=== PATIENT | male | born 1980 | race Asian ===

== ENCOUNTER 2022-03-25 23:02 | Emergency (ER) | payer BC, OTHER ==
[~2022-03-25] VITALS: Ht 167.6 cm; Wt 104.3 kg
--- NOTE | 2022-03-25 23:49 | NUR ---
POC ACCUCHECK BS 347
[2022-03-25] MEDS ORDERED: DICYCLOMINE HCL INJ 20 MG/2 ML AMPUL IM ONE (23:57)
[2022-03-25] MEDS ORDERED: ONDANSETRON HCL/PF 4 MG/2 ML VIAL ONE (23:57)
[2022-03-26] MEDS ORDERED: DICYCLOMINE HCL INJ 20 MG/2 ML AMPUL IM ONE
[2022-03-26] MEDS ORDERED: IV NS 0.9% 1,000 ML BAG IV ONE
[2022-03-26] MEDS ORDERED: ONDANSETRON HCL/PF 4 MG/2 ML VIAL IVP ONE
--- NOTE | 2022-03-26 00:05 | NUR ---
RAC #18G S/L BLOOD COLLECTED AND SENT TO LAB
--- NOTE | 2022-03-26 00:06 | NUR ---
COVID ANTIGEN SWAB COLLECTED AND SENT TO LAB. PT NOT ABLE TO URINATE AT THIS TIMEL; AWAITING URINE SAMPLE
--- NOTE | 2022-03-26 00:18 | NUR ---
URINE COLLECTED AND SENT TO LAB
[2022-03-26 00:31] LABS: BASOPHILS % (AUTO) 0.1 % (0.0-2.0); EOSINOPHILS % (AUTO) 0.7 % (0.0-6.0); HEMATOCRIT 53 % (39-51); HEMOGLOBIN 17.2 g/dL (13.5-17.5); LYMPHOCYTES % (AUTO) 6.2 % (20.0-44.0); MEAN CORPUSCULAR HGB CONC 32 g/dl (31.0-36.0); MEAN CORPUSCULAR VOLUME 82 fL (80-96); MONOCYTES # (AUTO) 0.6 K/uL (0.1-1.30); MONOCYTES % (AUTO) 1.9 % (2.0-12.0); NEUTROPHILS # (AUTO) 28.8 K/uL (1.8-8.9); NEUTROPHILS % (AUTO) 91.1 % (43.0-81.0); PLATELET COUNT (AUTO) 346 K/uL (150-450); RED BLOOD CELL COUNT(AUTO) 6.48 MIL/uL (4.5-6.0)
--- NOTE | 2022-03-26 00:31 | NUR ---
PT TAKEN TO CT VIA JAMES
[2022-03-26 00:32] LABS: WHITE BLOOD COUNT (AUTO) 31.6 K/uL (4.3-11.0)
[2022-03-26 00:40] LABS: CALCIUM, SERUM 10.1 mg/dL (8.5-10.1); CARBON DIOXIDE 30 mmol/L (21-32); CHLORIDE 94 mmol/L (98-107); CREATININE 1.6 mg/dL (0.6-1.3); POTASSIUM 3.9 mmol/L (3.5-5.1); SODIUM SERUM 134 mmol/L (136-145); UREA NITROGEN, BLOOD 17 mg/dL (7-18)
[2022-03-26 00:45] LABS: GLUCOSE 395 mg/dL (74-106)
[2022-03-26 00:56] LABS: ALANINE AMINOTRANSFERASE 72 U/L (12-78); ALBUMIN 4.6 g/dL (3.4-5.0); ALKALINE PHOSPHATASE 149 U/L (46-116); ASPARTATE AMINOTRANSFERASE 25 U/L (15-37); BILIRUBIN,DIRECT 0.1 mg/dL (0.0-0.2); BILIRUBIN,TOTAL 0.3 mg/dL (0.2-1.0); LIPASE 168 U/L (73-393); TOTAL PROTEIN, SERUM 9.4 g/dL (6.4-8.2)
[2022-03-26] MEDS ORDERED: INSULIN REGULAR, HUMAN 100 UNIT/ML 10 ML VIAL IV ONE (01:00)
[2022-03-26 01:02] LABS: BILIRUBIN,URINE 1+ (NEGATIVE); COLOR,URINE DARK YELLOW (YELLOW); LEUKOCYTE ESTERASE ,URINE NEGATIVE (NEGATIVE); NITRITE, URINE NEGATIVE (NEGATIVE); PH,URINE 5.5 (5.0-8.0); PROTEIN,URINE 3+ mg/dl (NEGATIVE); UGLUCOSE 2+ mg/dL (NEGATIVE); UROBILINOGEN,URINE 0.2 EU/dL (0.2)
[2022-03-26] MEDS ORDERED: INSULIN REGULAR, HUMAN 100 UNIT/ML 10 ML VIAL ONE (01:02)
[2022-03-26 01:06] LABS: BACTERIA,URINE Few /HPF (None Seen); COARSE GRANULAR CASTS,URINE Few /LPF (None Seen); SQUAMOUS EPITHELIAL CELL,UR Moderate /HPF (None Seen)
--- NOTE | 2022-03-26 02:04 | NUR ---
POC BS CHECK 304
--- NOTE | 2022-03-26 02:58 | NUR ---
TRANSFORMER INSPECTOR AT PT BEDSIDE
--- NOTE | 2022-03-26 03:12 | NUR ---
GIS MAPPING TECHNICIAN AT PT'S BEDSIDE
[2022-03-26 03:15] LABS: BASOPHILS % (AUTO) 0.1 % (0.0-2.0); EOSINOPHILS % (AUTO) 1.2 % (0.0-6.0); HEMATOCRIT 50 % (39-51); HEMOGLOBIN 16.5 g/dL (13.5-17.5); LYMPHOCYTES # (AUTO) 0.4 K/uL (0.8-4.8); LYMPHOCYTES % (AUTO) 1.4 % (20.0-44.0); MEAN CORPUSCULAR HGB CONC 33 g/dl (31.0-36.0); MEAN CORPUSCULAR VOLUME 82 fL (80-96); MONOCYTES # (AUTO) 1.2 K/uL (0.1-1.30); MONOCYTES % (AUTO) 4.4 % (2.0-12.0); NEUTROPHILS # (AUTO) 25.1 K/uL (1.8-8.9); NEUTROPHILS % (AUTO) 92.9 % (43.0-81.0); PLATELET COUNT (AUTO) 268 K/uL (150-450); RED BLOOD CELL COUNT(AUTO) 6.13 MIL/uL (4.5-6.0); WHITE BLOOD COUNT (AUTO) 27.1 K/uL (4.3-11.0)
[2022-03-26 03:25] LABS: BAND % (MANUAL) 13 % (0.0-5.0); BASOPHILS % (MANUAL) 0 % (0.0-2.0); EOSINOPHILS % (MANUAL) 0 % (0-4); LYMPHOCYTES % (MANUAL) 3 % (16-48); MONOCYTES % (MANUAL) 7 % (0-11.0); NEUTROPHILS % (MANUAL) 77 (42-76)
--- NOTE | 2022-03-26 03:47 | NUR ---
POC BS 284; DR SANDHYA HARMON NOTIFIED
[2022-03-26] MEDS ORDERED: CIPROFLOXACIN HCL 500 MG TABLET PO ONE (04:00)
[2022-03-26] MEDS ORDERED: ONDA4TAB5 PO (04:01)
[2022-03-26] MEDS ORDERED: CIPR500T5 PO (04:01)
[2022-03-26] MEDS ORDERED: CIPROFLOXACIN HCL 500 MG TABLET ONE (04:10)
--- NOTE | 2022-03-26 04:15 | NUR ---
Patient discharged to home in stable condition. Written and verbal after care instructions given. Patient verbalizes understanding of instruction. IV removed. Catheter intact and site benign. Pressure and 4x4 applied to site. No bleeding noted.
--- NOTE | 2022-03-26 04:23 | NUR ---
IV removed. Catheter intact and site benign. Pressure and 4x4 applied to site. No bleeding noted.Patient discharged to home in stable condition. Written and verbal after care instructions given. Patient verbalizes understanding of instruction.
[2022-03-26 04:29] VITALS: BP 92/62
== END 2022-03-26 04:30 | disposition home or self-care (01) ==
LOC: ER 23:07
DX: K52.9 Noninfective gastroenteritis and colitis, unspecified (principal); D72.829 Elevated white blood cell count, unspecified; E11.65 Type 2 diabetes mellitus with hyperglycemia; R00.0 Tachycardia, unspecified; Z20.822 Contact with and (suspected) exposure to COVID-19
CPT/HCPCS: 99285; 74176; 93005; 36415; 82962 ×3; 96374; 71045; 96361; 96375; 87426; 85025 ×2; 80048; 87086; 83690; 80076; 81001; 84484 ×2; 96372; 85007; J2405; J7030; J0500; C9803; J1815